=== PATIENT | male | born 1975 | race Caucasian/White ===

== ENCOUNTER 2020-12-10 06:22 | Observation (INO) ==
--- NOTE | 2020-11-10 13:09 | PAT Medication Instructions ---
Medication Instructions Date of Service November 10, 2020 Home Medications Medication Instructions Recorded cyclobenzaprine 10 mg PO TID PRN #30 tab 10/29/20 oxycodone 5 - 10 mg PO Q6H PRN #24 tab 10/29/20 prednisone 20 mg PO DAILY #25 tab 10/29/20 atorvastatin 20 mg PO QAM cyclobenzaprine 10 mg PO TID PRN oxycodone 5 - 10 mg PO Q6H PRN prednisone 20 mg PO DAILY aspirin [Aspir-81] 81 mg PO QAM atenolol 25 mg PO QAM lisinopril 10 mg PO QAM ASK your prescriber and surgeon aspirin [Aspir-81] 81 mg PO QAM DO NOT take the morning of surgery cyclobenzaprine 10 mg PO TID PRN lisinopril 10 mg PO QAM Take morning of surgery With a small sip of water, OTHERWISE NOTHING TO EAT OR DRINK AFTER MIDNIGHT: atorvastatin 20 mg PO QAM oxycodone 5 - 10 mg PO Q6H PRN (okay to take up to 4 hours prior to surgery if needed) prednisone 20 mg PO DAILY atenolol 25 mg PO QAM Take evening before surgery cyclobenzaprine 10 mg PO TID PRN (if needed) oxycodone 5 - 10 mg PO Q6H PRN (if needed) Other Notes If you have any questions please call us at [phone] or [phone] or [phone] or [phone]
--- NOTE | 2020-11-13 12:05 | Anesthesiology Consultation ---
Date of Service November 13, 2020 Assessment & Plan (1) Encounter for pre-operative examination: COVID screening: Per assessment on 11/13: Travel screen negative, no known COVID- 19 positive contacts or current COVID-19 related symptoms. Surgeon arranging preop COVID testing (@[facility]). Awaiting results. Chart Review Chart Review: Acceptable Risk for Surgery and Patient seen in Pre Admission Testing Teaching & Discussion Pre-Anesthesia Teaching/Discussion Notes: Instructed NPO after midnight before surgery,except medications with 15 cc of water. Medication instructions provided according to the PAT guidelines. History Surgery Operation Date: 12/03/20 12:55 Proposed Procedures p C6-C7 Anterior Cervical Discectomy and Fusion, Possible C5-C6, Spinal Cord Monitoring - Rodríguez Guy DO Height/Weight Height: 6 ft 1 in Weight: 110 kg Allergies Allergy/AdvReac Type Severity Reaction Status Date / Time No Known Allergies Allergy Unverified 11/07/20 12:19 Medications Home Medications Medication Instructions Recorded Confirmed Last Taken atorvastatin 20 mg PO QAM 10/29/20 11/07/20 Unknown cyclobenzaprine 10 mg PO TID PRN #30 tab 10/29/20 11/07/20 Unknown oxycodone 5 - 10 mg PO Q6H PRN #24 tab 10/29/20 11/07/20 Unknown prednisone 20 mg PO DAILY #25 tab 10/29/20 11/07/20 Unknown aspirin [Aspir-81] 81 mg PO QAM 11/07/20 11/07/20 Unknown atenolol 25 mg PO QAM 11/07/20 11/07/20 Unknown lisinopril 10 mg PO QAM 11/07/20 11/07/20 Unknown Past Medical History Medical History Herniated cervical disc History of skin cancer Left ear s/p excision HTN (hypertension) Hyperlipemia Intermittent self-catheterization of bladder twice daily Urinary retention Chronic > no definitive etiology per pt Exercise / Class Metabolic Activity II 4-5 Yardwork/Stairs/Walk up hill Past Family History Family History Other No family history of adverse response to anesthesia Past Surgical History Surgical History History of cystoscopy History of umbilical hernia repair History of wisdom tooth extraction Hx of LASIK Past Anesthesia History No Hx of Anesthesia Complications and No Family Hx of Anesthesia Complications History of PONV No Hx of PONV and No Hx of Motion Sickness STOP BANG Total 5 Social History Smoking Status: Former smoker tobacco type: cigarettes Do You Dip or Chew Tobacco: No Smoking End Date: Quit 10/2020 (hx tobacco use x 20+ years) Hx Alcohol Use: Yes Alcohol type: beer, wine and hard liquor alcohol intake frequency: a few times a week Hx Substance Use: No substance use type: does not use Review of Systems + snoring. No apnea events. Patient denies chest pain, shortness of breath, dyspnea on exertion, fever, chills, cough, wheezing, palpitations. Physical Exam Vital Signs VITALS BP 127/86 P 80 TEMP 98.7 SP02 96%RA RESP 16 PHYSICAL Full neck and c-spine extension range of motion (patient notes significant cervicalgia with side to side movement). Full TMJ range of motion. TMD 3.5 finger breaths Mallampati Score 3 Dentition: intact, + cap on upper front Lungs: clear throughout to auscultation Cardiac: regular rate and rhythm, no murmurs noted Spine: normal Carotid arteries: negative bruit Extremities: no edema Testing Laboratory Results 11/13/20 12:40 11/13/20 12:40 PT 9.4 Seconds (9.0-12.0) 11/13/20 12:40 INR 0.9 (0.9-1.1) 11/13/20 12:40 APTT 24.7 Seconds (21.0-31.0) 11/13/20 12:40 Blood Type A Positive 11/13/20 12:40 Antibody Screen NEGATIVE 11/13/20 12:40 Surgeon's office made aware of elevated WBC* Electrocardiogram Date: 11/13/20 Findings: + NSR @ (74) Chest X-Ray Date: 11/13/20 FINDINGS:Cardiomediastinal and hilar silhouettes are within normal limits. Mild right hemidiaphragmatic elevation. No pneumothorax, pleural effusion, airspace consolidation or overt pulmonary edema. The bones of the chest appear grossly intact. IMPRESSION: No acute process.
--- NOTE | 2020-11-13 13:18 | XRay Report ---
XR chest Pre-admission PA/Lat HISTORY: 44 years-old Male pat preoperative exam. No acute chest complaints COMPARISON: None TECHNIQUE: PA and lateral views of the chest FINDINGS: Cardiomediastinal and hilar silhouettes are within normal limits. Mild right hemidiaphragmatic elevat ion. No pneumothorax, pleural effusion, airspace consolidation or overt pulmonary edema. The bones of the chest appear grossly intact. IMPRESSION: No acute process. ACT 112: Negative or not required by law. The above report was generated using voice recognition software. It may contain grammatical, syntax o r spelling errors. Electronically signed by: Don Mueller M.D. 11/13/2020 1:17 PM
[2020-11-13 13:32] LABS: Basophils # (auto) 0.02 K/uL (0-0.2); Basophils % (auto) 0.2 %; Eosinophils # (auto) 0.23 K/uL (0-0.5); Eosinophils % (auto) 1.8 %; Hematocrit (blood only) 45.7 % (42-52); Hemoglobin 15.8 g/dL (14.0-18.0); Immature Granulocytes # (auto) 0.03 K/uL (0.00-0.02); Immature Granulocytes % (auto) 0.2 %; Mean Corpuscular Hemoglobin 32.8 pg (25-34); Mean Corpuscular Hgb Conc 34.6 g/dL (32-36); Mean Corpuscular Volume 94.8 fL (80-100); Mean Platelet Volume 9.1 fL (7.4-10.4); Monocytes # (auto) 0.93 K/uL (0.11-0.59); Monocytes % (auto) 7.2 %; Neutrophils # (auto) 9.18 K/uL (1.4-6.5); Neutrophils % (auto) 70.6 %; Platelet Count 247 K/uL (130-400); RDW Coefficient of Variation 13.6 % (11.5-14.5); RDW Standard Deviation 47.6 fL (36.4-46.3); Red Blood Count 4.82 M/uL (4.7-6.1); White Blood Count 12.99 K/uL (4.8-10.8)
[2020-11-13 13:42] LABS: INR 0.9 (0.9-1.1); Partial Thromboplastin Ratio 0.9; Partial Thromboplastin Time 24.7 Seconds (21.0-31.0); Prothrombin Time 9.4 Seconds (9.0-12.0)
[2020-11-13 14:03] LABS: BUN Creatinine Ratio 28.4 (10-20); Calcium 8.6 mg/dl (8.5-10.1); Creatinine Clr Calc Pharmacy 140.9 ml/min; Est GFR (African American) 121.7; Potassium 4.4 mmol/L (3.5-5.1)
--- NOTE | 2020-11-13 16:45 | Electrocardiogram Report ---
Test Reason : Blood Pressure : / mmHG Vent. Rate : 074 BPM Atrial Rate : 074 BPM P-R Int : 158 ms QRS Dur : 090 ms QT Int : 396 ms P-R-T Axes : 025 004 025 degrees QTc Int : 439 ms Normal sinus rhythm Normal ECG No previous ECGs available Confirmed by Tino Arredondo ([id number]) on 11/13/2020 4:44:51 PM Referred By: Rodríguez Guy Confirmed By:Sandro Arredondo
[2020-11-16 15:27] LABS: Appearance Urine Clear (Clear); Bilirubin Urine Negative (Negative); Blood Urine Negative (Negative); Color Urine Yellow; Glucose Urine UA Negative (Negative); Ketones Urine Negative (Negative); Leukocyte Esterase Urine Negative (Negative); Nitrite Urine Negative (Negative); Protein Urine Negative (Negative); Specific Gravity Urine 1.025 (1.000-1.030); Urobilinogen Urine Negative (Negative)
[~2020-12-10 06:22] MED LIST: ACETAMINOPHEN 500 MG TAB PO SCH; CeleBREX 200 MG CAP PO SCH; GABAPENTIN 900 MG DOSE PO SCH; LR 15ML/HR IV SCH; ceFAZolin 2000MG 2,000 MG/15 ML SYR IV SCH
[2020-12-10] MEDS ORDERED: MIDAZOLAM HCL 1 MG/ML 2ML VIAL ONE (06:37)
[2020-12-10] MEDS ORDERED: fentaNYL citrate 100 MCG/2 ML VIAL ONE (06:37)
[2020-12-10] MEDS ORDERED: ROCURONIUM BROMIDE 10 MG/ML 5 ML VIAL IV ONE ×5 (06:53→08:45)
[2020-12-10] MEDS ORDERED: ONDANSETRON INJ 2 MG/ML 2 ML VIAL ONE (06:53)
[2020-12-10] MEDS ORDERED: PROPOFOL IV EMULSION 10 MG/ML 20 ML VIAL IV ONE (06:53)
[2020-12-10] MEDS ORDERED: DEXAMETHASONE SOD INJ 4 MG/ML VIAL ONE (06:53)
[2020-12-10] MEDS ORDERED: LIDOCAINE HCL 2% 2 ML VIAL/AMP(20MG/ML) INFIL ONE (06:53)
[2020-12-10] MEDS ORDERED: ATROPINE SULFATE 0.1 MG/ML 10ML SYR IV PRN (07:08)
[2020-12-10] MEDS ORDERED: ONDANSETRON INJ 2 MG/ML 2 ML VIAL IV PRN ×2 (07:08→10:42)
[2020-12-10] MEDS ORDERED: fentaNYL citrate 100 MCG/2 ML VIAL IV PRN (07:08)
[2020-12-10] MEDS ORDERED: ePHEDrine sulfate 50 MG/ML AMP IV PRN (07:08)
[2020-12-10] MEDS ORDERED: BACITRACIN INJ 50,000 UNIT VIAL ONE (07:16)
--- NOTE | 2020-12-10 07:32 | History & Physical Bridge Note ---
Date of Service December 10, 2020 History & Physical Bridge Note I have examined the patient, reviewed the History & Physical and in the interval since the performance of the History & Physical I have noted the following changes of clinical significance: no changes noted
--- NOTE | 2020-12-10 07:33 | History & Physical Report ---
Date of Service December 10, 2020 Assessment & Plan (1) Herniation of cervical intervertebral disc with radiculopathy: Admission and Anticipated Discharge Date Admission Date: C6-C7 anterior cervical discectomy and fusion, possible C5-C6 History of Present Illness Chief Complaint: Neck and arm pain Primary Care Provider: Mahendra Johnson MD This is a 44-year-old male who presents with chronic persistent neck and arm pain. Failing course of nonoperative care is here for surgical invention. Allergies Allergy/AdvReac Type Severity Reaction Status Date / Time No Known Allergies Allergy Verified 12/10/20 06:48 Home Medications Medication Instructions Recorded Confirmed Type atorvastatin 20 mg PO QAM 10/29/20 12/10/20 History cyclobenzaprine 10 mg PO TID PRN #30 tab 10/29/20 12/10/20 Rx aspirin [Aspir-81] 81 mg PO QAM 11/07/20 12/10/20 History atenolol 25 mg PO QAM 11/07/20 12/10/20 History lisinopril 10 mg PO QAM 11/07/20 12/10/20 History Past Med/Surg History Medical History Herniated cervical disc History of skin cancer Left ear s/p excision HTN (hypertension) Hyperlipemia Intermittent self-catheterization of bladder twice daily Urinary retention Chronic > no definitive etiology per pt Surgical History History of cystoscopy History of umbilical hernia repair History of wisdom tooth extraction Hx of LASIK Family History Other No family history of adverse response to anesthesia Social History Smoking Status: Former smoker Smoking End Date: Quit 10/2020 (hx tobacco use x 20+ years); Second Hand Exposure: No; Do You Dip or Chew Tobacco: No; Tobacco Cessation Education Requested by Patient: No Hx Alcohol Use: Yes Alcohol type: beer, wine and hard liquor Hx Substance Use: No Preferred Language: Tam[place] Communication Ability: Effective Commercial Pest Control Representative Required: No Beliefs That Will Affect Care: None Current Living Situation: Significant Other Current Living Situation Comment: and children Feels Safe at Home: Yes Safety Concerns: Feels Safe At This Time Assistive Devices: None Physical Exam Physical Exam: Patient is alert and oriented Heart regular rhythm Lungs clear to auscultation Results & Data ([facility]) Vital Signs (Past 12 Hours) Vital Signs Temp Pulse Resp BP Pulse Ox 12/10/20 06:46 37.4 C 90 20 148/102 H 96
[2020-12-10] MEDS ORDERED: SUCCINYLCHOLINE CHLORIDE 20 MG/ML 10 ML VIAL IV ONE (08:11)
[2020-12-10] MEDS ORDERED: GLYCOPYRROLATE 0.2 MG/ML VIAL ONE (08:16)
[2020-12-10] MEDS ORDERED: NEOSTIGMINE METHYLSULFATE 1 MG/ML 10ML VIAL ONE (08:16)
[2020-12-10] MEDS ORDERED: HYDROmorphone INJ 2 MG/ML SYR/VIAL ONE (08:30)
[2020-12-10] MEDS ORDERED: FLOSEAL HEMOSTATIC MATRIX 10ML TOP ONE (09:09)
--- NOTE | 2020-12-10 09:18 | Operative Report ---
Post Operative Report Pre & Post Diagnosis Operation Date: 12/10/20 07:45 Pre-Op Diagnosis: Cervical disc condition with radiculopathy Post-Op Diagnosis: Same I identified the patient and participated in the time-out.: Yes Procedure Operation Date: 12/10/20 07:45 Actual Procedures #1 anterior cervical discectomy with bilateral foraminotomies C5-6 and C6-7. #2 anterior cervical arthrodesis C5-6 and C6-7. #3 placement of Spira 8 mm cage at C5-C6 and 9 mm cage at C6-C7 both filled with a I factor. #4 application 5 complete screws across C5-6 C6-7. Surgeon Rodríguez Guy, Supervisor Pole Yard Colette Muller Estimated Blood Loss 25 Findings Consistent with Post-Op Diagnosis Specimens None Indications This is a 44-year-old male who presents with above-mentioned diagnosis after failing course of nonoperative care is here for the above-mentioned procedure. Description of Procedure Patient was met with identified informed consent obtained. Patient was then taken to the operative suite underwent a patient placed in a supine position the table head Jim head ordered. All bony prominences well-padded eyes inspected to ensure no external pressure placed upon. This point anterior cervical spine was prepped and draped no sterile fashion. The assistance of fluoroscopy identified the C6 vertebral body and a transverse incision was placed on the right anterior aspect of the cervical spinal lines region. Sharp dissection with the assistance of bipolar electrocautery was performed down to and exposing anterior cervical spine from C5-C6. Several 10 retractors placed. Then performed a complete discectomy of C6-C7 out to the uncovertebral joints bilaterally. [place] distraction pins were utilized to assist in visualization. Removed all posterior annular fibers longitudinal ligament bilateral foraminotomies performed large disc herniation and the neural foramen on the left identified and removed. The endplates were then burred to subcortical being bone and a 9 mm spiral cage filled with I factor tapped in position. Distracting apparatus was removed and I proceeded to C5-C6. Again complete discectomy performed out to the uncovertebral's bilaterally. [place] distractor pins again utilized. I did remove all posterior annular fibers longitudinal ligament bilateral foraminotomies performed disc herniation on the right identified and removed. The endplates were then burred to subcortical bleeding bone and a 8 mm spiral cage filled with I factor tapped in position. Distracting apparatus was removed all anterior osteophytes burred to a smooth cortical surface and a baum plate and screws applied with the assistance of fluoroscopy. The incision was then copiously irrigated explored to ensure no damage to surrounding structure remaining bleeding. 10 round DERRICK drain inserted. Incision was then closed with 2 Vicryl the fascia 4 Monocryl for final skin closure. Steri-Strip sterile dressings placed. Patient waken taken PACU stable condition. Please note spinal cord monitoring was utilized at the procedure no changes noted. Lastly Colette Muller was present at the entire surgery involved the patient positioning complex portions of the surgery and final skin closure. I attest to the content of the Intraoperative Record and any orders documented therein. Any exceptions are noted below.
--- NOTE | 2020-12-10 09:35 | Fluoroscopy Report ---
FL cervical 2-3V CLINICAL HISTORY: ACDF C6-7 COMPARISON STUDY: None. FLUOROSCOPY TIME: 12 seconds. FINDINGS: 3 fluoroscopic spot images of the cervical spine demonstrate C5-C7 ACDF. The hardware appea rs intact. An endotracheal tube is noted. IMPRESSION: Fluoroscopy provided for C5-C7 ACDF. ACT 112: Negative or not required by law. Electronically signed by: Devang Stroud M.D. 12/10/2020 9:33 AM
[2020-12-10] MEDS ORDERED: hydrOXYzine HCl 25 MG TAB PO PRN (10:42)
[2020-12-10] MEDS ORDERED: ONDANSETRON 4 MG OD TAB PO PRN (10:42)
[2020-12-10] MEDS ORDERED: SOD PHOSPHATE/SOD BIPHOSPHATE ENEMA 132 ML BTL PR PRN (10:42)
[2020-12-10] MEDS ORDERED: LORazepam 0.5 MG/1 ML VIAL IV PRN (10:42)
[2020-12-10] MEDS ORDERED: ACETAMINOPHEN 500 MG TAB PO PRN (10:42)
[2020-12-10] MEDS ORDERED: diphenhydrAMINE Capsule 25 MG CAP PO PRN (10:42)
[2020-12-10] MEDS ORDERED: HYDROmorphone INJ 0.5 MG/0.5 ML SYR IV PRN (10:42)
[2020-12-10] MEDS ORDERED: DO NOT ADMINISTER PNEUMOCOCCAL VACCINE PRN (10:42)
[2020-12-10] MEDS ORDERED: FAMOTIDINE 20 MG TAB PO PRN (10:42)
[2020-12-10] MEDS ORDERED: MAGNESIUM HYDROXIDE SUSP 30 ML UDC PO PRN (10:42)
[2020-12-10] MEDS ORDERED: dexAMETHasone 8 MG in SYRINGE 0 ML IV PRN (10:42)
[2020-12-10] MEDS ORDERED: oxyCODONE HCL IR 5 MG TAB (IMMEDIATE RELEASE) PO PRN (10:42)
[2020-12-10] MEDS ORDERED: traMADol HCL 50 MG TABLET PO PRN (10:42)
[2020-12-10] MEDS ORDERED: HYDROmorphone INJ 1 MG/ML SYRINGE IV PRN (10:42)
[2020-12-10] MEDS ORDERED: ACETAMINOPHEN 1,000 MG/100 ML VIAL IV PRN (10:42)
[2020-12-10] MEDS ORDERED: ALUMINUM/MAGNESIUM SUSP 30 ML UDC PO PRN (10:42)
[2020-12-10] MEDS ORDERED: LORazepam 0.5 MG TAB PO PRN (10:42)
[2020-12-10] MEDS ORDERED: NALOXONE HCL 0.4 MG/1 ML VIAL/CARP IV PRN (10:42)
[2020-12-10] MEDS ORDERED: PROMETHAZINE HCL 12.5 MG in SODIUM CHLORIDE 0.9% 50 ML IV PRN (10:42)
[2020-12-10] MEDS ORDERED: DO NOT ADMINISTER FLU VACCINE PRN (10:42)
[2020-12-10] MEDS ORDERED: RACEPINEPHRINE 2.25% NEBU SOLN 0.5 ML VIAL INH PRN (10:42)
[2020-12-10] MEDS ORDERED: METOCLOPRAMIDE HCL INJ 5 MG/ML 2 ML VIAL IV PRN (10:42)
--- NOTE | 2020-12-10 10:42 | Anesthesiology Progress Note ---
Date of Service December 10, 2020 Anesthesia Post Procedure Vital Signs Vital Signs: Temp Pulse Pulse Resp BP BP Pulse Ox 12/10/20 10:40 71 18 136/92 98 12/10/20 10:30 98.2 F 64 12 115/86 96 12/10/20 10:20 58 L 12 141/91 H 93 12/10/20 10:10 73 19 151/103 H 97 12/10/20 10:00 78 14 151/90 H 95 12/10/20 09:50 80 14 151/98 H 95 12/10/20 09:40 79 12 134/89 95 12/10/20 09:33 97.9 F 81 15 126/87 95 12/10/20 06:46 99.3 F 90 20 148/102 H 96 Pain Intensity Anterior Neck: Pain Intensity: 2 Transfer of Care Handoff Completed per policy Notes Mental Status: alert / awake / arousable and participated in evaluation Patient Amnestic to Procedure: Yes Nausea / Vomiting: adequately controlled Pain: adequately controlled Airway Patency, RR, SpO2: stable & adequate BP & HR: stable & adequate Hydration State: stable & adequate Anesthetic Complications: no major complications apparent and Pt Satisfied with anesthetic care
[2020-12-10] MEDS ORDERED: CYCLOBENZAPRINE HCL 10 MG TAB PO PRN (11:28)
[2020-12-10] MEDS: LACTATED RINGER'S 1,000 ML IV SCH ×3 (11:53→22:07)
--- NOTE | 2020-12-10 12:13 | Consultation ---
Date of Consultation December 10, 2020 Assessment & Plan (1) S/P spinal surgery: Post op day# 0 S/P ACDF C5-C7 by Dr Guy EBL#15ml -pain management per ortho -wound management per ortho -PT/OT as appropriate -DVT prophylaxis per ortho -monitor H&H for acute blood loss anemia; pre-op Hgb: 15.8 (2) HTN (hypertension): BP Stable -Continue atenolol, lisinopril with holding parameters (3) Hyperlipemia: -Continue statin (4) Urinary retention: Chronic urinary retention. Requires self cath BID -Continue self cath BID -Bladder scan prn DVT Prophylaxis -SCDs per ortho Disposition per primary service Follows with Dr Mahendra Johnson for routine care Pt was seen and care coordinated with Dr Rose. See addendum Supervising Physician Co-Signing Physician Notes Pt was seen and examined. Agreed with Ayesha BANGURA exam, assessment and plan. 44 y/o M with PMH HTN, HLD, cervical disc disease, chronic urinary retention, Failed conservative management for neck pain, s/p ACDF C5-C7 by Dr Guy. Lying in bed with no distress. No Post op complication. Continue incentive spirometry. Continue monitor hemoglobin. Continue pain management as per ortho. Fall precaution. Will continue monitor during the hospital course. MD [place] History of Present Illness Requesting Physician: Dr Guy Reason for Consultation: Post op medical management Attending Physician: Rodríguez Guy DO History of Present Illness Pt is 44 y/o M with PMH HTN, HLD, cervical disc d isease, chronic urinary retention seen in medical consultation s/p ACDF C5-C7 today by Dr Guy. Post op pt reports feels a little tired s/p anesthesia. Pt drinking water, eating Jello without any dysphagia. Reports throat feels a little scratchy with swallowing. Pt needs to self cath twice daily. Denies SOB, CP, MORENO, dizziness, fever/chills, diaphoresis, N/V/D, choking, abdominal pain, paresthesias, extremity weakness, extremity edema, rashes, dysuria, hematuria. Allergies Allergy/AdvReac Type Severity Reaction Status Date / Time No Known Allergies Allergy Verified 12/10/20 06:48 Home Medications Medication Instructions Recorded Confirmed Type atorvastatin 20 mg PO QAM 10/29/20 12/10/20 History cyclobenzaprine 10 mg PO TID PRN #30 tab 10/29/20 12/10/20 Rx aspirin 81 mg PO QAM 11/07/20 12/10/20 History atenolol 25 mg PO QAM 11/07/20 12/10/20 History lisinopril 10 mg PO QAM 11/07/20 12/10/20 History oxycodone 5 mg PO Q6H PRN #20 tab 12/10/20 Rx tramadol 50 mg PO Q6H PRN #20 tab 12/10/20 Rx Patient History Medical History Herniated cervical disc History of skin cancer Left ear s/p excision HTN (hypertension) Hyperlipemia Intermittent self-catheterization of bladder twice daily Urinary retention Chronic > no definitive etiology per pt Surgical History History of cystoscopy History of umbilical hernia repair History of wisdom tooth extraction Hx of LASIK Family History Other No family history of adverse response to anesthesia Social History (Updated 12/10/20 @ 12:46 by Ayesha Tobias PA-C) Smoking Status: Former smoker Smoking End Date: Quit 10/2020 (hx tobacco use x 20+ years); Second Hand Exposure: No; Do You Dip or Chew Tobacco: No; Tobacco Cessation Education Requested by Patient: No Hx Alcohol Use: Yes Alcohol type: beer, wine and hard liquor Alcohol Intake Frequency Comment: 2 drinks daily Hx Substance Use: No Preferred Language: Sami Communication Ability: Effective Car Rider Required: No Beliefs That Will Affect Care: None Current Living Situation: Significant Other Current Living Situation Comment: and children Feels Safe at Home: Yes Safety Concerns: Feels Safe At This Time Assistive Devices: Brace/Splint/Immobilizer Review of Systems Review of Systems: All systems reviewed & are unremarkable except as noted in HPI & below Physical Exam Physical Exam: General: no distress, WDWN Head: normocephalic, atraumatic Eyes: conjunctiva non-injected, anicteric ENT: normal inspection external ears, nose, mucous membranes moist Neck: supple, trachea midline, anterior neck with surgical dressing in place with small amount serosanguineous drainage noted and is marked with ruby on dressing. DERRICK drain intact. Lungs: clear, no respiratory distress, no wheezing/rhonchi/rales CV: RRR, no murmur, no pretibial edema Abd: normal BS, soft, non-tender Ext: no cyanosis, no calf tenderness; bilateral pedal pushes and pulls intact, strong and equal fashion director party plan sales strength bilaterally Neuro: A&O x 3, no focal deficits noted, normal affect Skin: warm, dry Results & Data ([facility]) Vital Signs (Past 12 Hours) Vital Signs Temp Pulse Pulse Pulse Resp BP BP 12/10/20 12:00 36.9 C 78 18 128/84 12/10/20 11:30 36.5 C 72 18 124/78 12/10/20 11:25 62 18 12/10/20 11:00 37.0 C 90 18 136/90 12/10/20 10:40 71 18 136/92 12/10/20 10:30 36.8 C 64 12 115/86 12/10/20 10:20 58 L 12 141/91 H 12/10/20 10:10 73 19 151/103 H 12/10/20 10:00 78 14 151/90 H 12/10/20 09:50 80 14 151/98 H 12/10/20 09:40 79 12 134/89 12/10/20 09:33 36.6 C 81 15 126/87 12/10/20 06:46 37.4 C 90 20 148/102 H Pulse Ox Pulse Ox 12/10/20 12:00 95 12/10/20 11:30 95 12/10/20 11:25 93 12/10/20 11:00 96 95 12/10/20 10:40 98 12/10/20 10:30 96 12/10/20 10:20 93 12/10/20 10:10 97 12/10/20 10:00 95 12/10/20 09:50 95 12/10/20 09:40 95 12/10/20 09:33 95 12/10/20 06:46 96
[2020-12-10] MEDS ORDERED: ATENOLOL 25 MG TABLET PO ONE (14:00)
[2020-12-10] MEDS: ceFAZolin 2000MG 2,000 MG/15 ML SYR IV SCH (15:48)
[2020-12-10] MEDS ORDERED: DOCUSATE SODIUM/SENNA 50/8.6MG TAB PO SCH (21:00)
[2020-12-11] MEDS: ceFAZolin 2000MG 2,000 MG/15 ML SYR IV SCH (00:10)
[2020-12-11] MEDS ORDERED: POLYETHYLENE (MIRALAX) 17 GM PACK PO SCH (06:00)
[2020-12-11 07:59] LABS: Hematocrit (blood only) 44.3 % (42-52); Hemoglobin 15.8 g/dL (14.0-18.0); Mean Corpuscular Hemoglobin 32.8 pg (25-34); Mean Corpuscular Hgb Conc 35.7 g/dL (32-36); Mean Corpuscular Volume 92.1 fL (80-100); Mean Platelet Volume 8.8 fL (7.4-10.4); Platelet Count 248 K/uL (130-400); RDW Coefficient of Variation 12.6 % (11.5-14.5); RDW Standard Deviation 42.6 fL (36.4-46.3); Red Blood Count 4.81 M/uL (4.7-6.1); White Blood Count 13.98 K/uL (4.8-10.8)
[2020-12-11 08:24] LABS: BUN Creatinine Ratio 8.6 (10-20); Calcium 9.2 mg/dl (8.5-10.1); Creatinine Clr Calc Pharmacy 147.8 ml/min; Potassium 3.9 mmol/L (3.5-5.1)
[2020-12-11] MEDS ORDERED: ATENOLOL 25 MG TABLET PO SCH (09:00)
[2020-12-11] MEDS ORDERED: ASPIRIN 81 MG ECTAB PO SCH (09:00)
[2020-12-11] MEDS ORDERED: lisinopril 10 MG TAB PO SCH (09:00)
[2020-12-11] MEDS ORDERED: ATORVASTATIN 20 MG TAB PO SCH (09:00)
--- NOTE | 2020-12-11 12:14 | Discharge Summary ---
Date of Service December 11, 2020 Admission HPI Per Admitting Provider This is a 44-year-old male who presents with chronic persistent neck and arm pain. Failing course of nonoperative care is here for surgical invention. Principal Diagnosis Cervical disc condition with radiculopathy Discharge Data Allergies Allergy/AdvReac Type Severity Reaction Status Date / Time No Known Allergies Allergy Verified 12/10/20 06:48 Consultations 12/10/20 10:42 Consult Hospitalist Routine Procedures Performed Operation Date: 12/10/20 07:45 Actual Procedures p C5-C7 Anterior Cervical Discectomy and Fusion, Placement of Bone Graft, Spinal Cord Monitoring - Rodríguez Guy DO Ordered Studies 12/10/20 07:45 FL cervical 2-3V Routine Hospital Course (1) Herniation of cervical intervertebral disc with radiculopathy: Patient underwent anterior cervical discectomy and fusion cholecystectomy orthopedic for postop bleed. Postop #1 he was swallowing well no hoarseness arm symptoms markedly improved. Pain well controlled. DERRICK drain decreasing appropriately. Subsequent discharge home. Discharge orders and instructions found the chart for further review. Total Time Total Time Spent Total Time Spent (In Minutes): 20 minutes Discharge Plan Discharge Items Patient Disposition: Home - Self-Care Reason For Visit: Spinal Stenosis, Cervical Region Discharge Diagnosis: Cervical disc herniation with radiculopathy Activity: As commented below Non-emergency contact: Primary Care Provider Call non-emergency contact if: you have any medication questions Follow-up/Referrals: Mahendra Johnson MD [Primary Care Provider] - Diet: Regular Addtl Attending Provider Instructions: ACTIVITY RECOMMENDATIONS: SELF CARE INSTRUCTIONS AFTER CERVICAL FUSIONS 1. No smoking. Smoking drastically decreases the chance of a solid fusion. 2. No bending, lifting more than 5 pounds, or twisting (roll like a log when t urning in bed). 3. You may shower 3 days after surgery. Thoroughly dry wound. Do not soak in the tub. 4. Cervical collar: Must be worn at all times including sleeping. You may remove the brace only to bath, eat and if you are sitting in a recliner. 5. Please walk as much as you can for exercise. Gradually increase the distance that you walk as your endurance increases. SPECIAL CARE INSTRUCTIONS: VERY IMPORTANT TO READ AND REVIEW A. Do not take any anti-inflammatory medications (i.e. Indocin, Advil, Aspirin, Naprosyn, Aleve, Motrin, etc.) as these may inhibit the chance of a solid fusion. Tylenol is okay to take. B. Your surgical incision has been closed with a cosmetic suture under the skin that will dissolve in about 6 weeks. In 14 days, you can use a pair of clean scissors and cut the suture that is left outside of the skin at the ends of your incision. C. Complications are uncommon, but please contact us if you have any signs or symptoms of: 1. wound infection (fever higher than 102.5 degrees F, redness, separation of wound, drainage, or increasing pain from the incision) 2. blood clots in legs (pain, swelling, redness and warmth in legs) 3. urinary tract infection (fever higher than 102.5 degrees, burning upon urination or increased frequency of urination) 4. nerve problems (inability to walk on your toes or heels, numbness, loss of bowel or bladder control) 5. any other symptoms that concern you. D. Please call the office at if you have any concerns or questions about your operation or recovery. MANAGING PAIN AFTER SPINAL SURGERY 1. Narcotic medication is intended for short-term use and will be provided for surgical pain. Surgical pain usually lasts for a period of 4-6 weeks. Narcotic medication includes Percocet, Vicodin, Darvocet, Tylenol #3 or Lortab. 2. Longer-term pain is more appropriately treated with non-narcotic medication such as Tylenol ES. 3. Muscle spasm is not appropriately treated with narcotics. Muscle relaxers such as Soma, Flexeril or Skelaxin can be used along with Tylenol ES. 4. Remember that we all live with some "aches and pains". This is not unusual or uncommon after an injury or as we get older. 5. We will provide appropriate medication within the normal guidelines of their prescribed use. We will also be very cautious and aware of potential abuse and extended duration of patients' medication needs. 6. Please allow 2-3 days to process refills. Prescriptions will not be mailed but must be picked up at the office. FOLLOW UP VISIT: Keep your scheduled follow-up appointment. Any questions, please call the office at . Pending Studies at Discharge: No Stand-Alone Forms: My [facility], Smoking Cessation Medications and DC Order Prescriptions: New tramadol 50 mg tablet 50 mg PO Q6H PRN (Reason: pain, moderate) Qty: 20 RF: 0 oxycodone 5 mg tablet 5 mg PO Q6H PRN (Reason: pain, severe) Qty: 20 RF: 0 Continued atorvastatin 20 mg tablet 20 mg PO QAM RF: 0 cyclobenzaprine 10 mg tablet 10 mg PO TID PRN (Reason: muscle spasm) Qty: 30 RF: 0 atenolol 25 mg Tablet 25 mg PO QAM RF: 0 aspirin [Aspir-81] 81 mg Tablet,Delayed Release (Dr/Ec) 81 mg PO QAM RF: 0 lisinopril 10 mg Tablet 10 mg PO QAM RF: 0 Discharge Orders: Discharge Order (Routine); Ordered 12/11/20 Ordered By: Rodríguez Guy Admission Data Admit Date/Time: 12/10/20 09:46 Attending Provider: Rodríguez Guy Admit Provider: Rodríguez Guy Primary Care Provider: Mahendra Johnson Other Providers: Kasie Mcdowell ; Scot Rose
[2020-12-12] MEDS ORDERED: bisacodyL 10 MG SUPP PR PRN (09:19)
== END 2020-12-11 13:15 | disposition home or self-care (01) ==
LOC: ASU 06:22 → INTOOBSV 09:46 → 3E 09:46